=== PATIENT | male | born 1955 | race Caucasian/White ===

== ENCOUNTER 2021-01-03 08:40 | Day surgery (SDC) | payer BC, OTHER ==
[2021-01-03] MEDS ORDERED: propofoL 200 MG/20 ML VIAL IV ONE (09:13)
[2021-01-03] MEDS ORDERED: MIDAZOLAM HCL 2 MG/2 ML INJ ONE (09:13)
[2021-01-03] MEDS ORDERED: GLYCOPYRROLATE 0.2 MG/ML SYR ONE (09:13)
[2021-01-03] MEDS ORDERED: ONDANSETRON 4 MG/2 ML VIAL ONE ×2 (09:14→11:36)
[2021-01-03] MEDS ORDERED: FENTANYL CITR 250 MCG/5 ML ONE (09:14)
[2021-01-03] MEDS ORDERED: Ringers Lactate 1,000 ML IV ONE ×2 (09:26→11:59)
[2021-01-03] MEDS ORDERED: CEFOXITIN/SWI 1gm 1 GM/10 ML SYR ONE (09:26)
[2021-01-03] MEDS: BUPIVACA 0.5%/EPI 0.0005%/PF 30 ML VIAL ONE ×2 (09:34→11:00)
[2021-01-03] MEDS ORDERED: BUPIVACAINE 0.25% PF 30 ML VIAL ONE (09:45)
[2021-01-03] MEDS ORDERED: EPHEDRINE SULF 50 MG/ML VIAL ONE ×3 (11:40→11:42)
[2021-01-03] MEDS ORDERED: FENTANYL CITR 100 MCG/2 ML ONE (12:25)
--- NOTE | 2021-01-03 12:39 | P.OP ---
Preoperative diagnosis: Chronic Cholecystitis Postoperative diagnosis: Chronic Cholecystitis Primary procedure: Laparoscopic Cholecystectomy Anesthesia: GETA + Local Estimated blood loss: <10cc Specimen: Gallbladder Findings: Significant Scarring, encased GB, Cirrhosis Complications: None Transferred to: Recovery Room Condition: Good
[2021-01-03] MEDS ORDERED: HYDROCODONE/APAP 5/325 MG TAB PO ONE (13:01)
[2021-01-03] MEDS: HYDROMORPHONE HCL 1 MG/ML INJ ONE ×2 (13:13→13:18)
[2021-01-03 13:25] VITALS: TEMP 96.9
[2021-01-03 13:43] VITALS: BP 136/82; O2SAT 97
[2021-01-03] MEDS ORDERED: HYDROCODONE/APAP 5/325 MG TAB ONE (14:07)
--- NOTE | 2021-01-03 14:24 | OP ---
Date of Procedure: 01/03/2021 Surgeon: Сергей Taylor MD, Preoperative Diagnosis: Chronic cholecystitis. Postoperative Diagnosis: Chronic cholecystitis. Procedure Performed: Laparoscopic cholecystectomy. Anesthesia: General endotracheal plus local with 0.25% Marcaine. Estimated Blood Loss: Less than 10 mL. Specimen: Gallbladder. Findings: Significant scarring in gallbladder and cirrhosis. Complications: None. Disposition: The patient was transferred to recovery room in good condition. Procedure In Detail: After informed consent was obtained, the patient was brought to the operating r oom, prepped and draped in the usual sterile fashion. After adequate anesthesia achieved, supraumbil ical area was anesthetized with 0.25% Marcaine and sharply incised. A 5 mm 0-degree optical trocar w as introduced in the abdomen without evidence of complication. Insufflation was obtained to 15 mmHg at this time. There was no injury to vital structures upon entry to the abdomen. Two additional tro cars were placed, 1 in the epigastrium and 1 in the right upper quadrant. Both of these were similar ly anesthetized and sharply incised. A 5 mm trocar was introduced in the abdomen without evidence of complication. Insufflation was maintained at 15 throughout the majority of the. I began by inspect ing the abdomen and the liver was found to have evidence of gross cirrhosis. I localized the gallbla dder, grasped the fundus of the gallbladder, and placed towards the patient's right shoulder after po sitioning the patient in the head up right-side up position/gallbladder position. The gallbladder wa s found to be floppy, but with evidence of stones and significant encasement was evident. I started taking the encased omentum off the anterior surface of the gallbladder using electrocautery and katarzyna nued to dissect the gallbladder down to the Farnaz pouch. The scarring was found to be quite signi ficant as I moved down towards the Farnaz pouch of the gallbladder. There was significant scarring in that area making dissection quite difficult and meticulous at this point, I therefore dissected c ircumferentially down until I obtained a view of the gallbladder cystic duct junction. I could not d issect this without electrocautery and the area was quite firmly encased and scar tissue making the i dentification of anatomy quite difficult and as such I opted to take the gallbladder and I opted to e ncircle it at this point to remove the gallbladder at the cystic duct gallbladder junction rather maritza n on the cystic duct site. I therefore dissected and continued through the thick inflammatory rind a nd noted 2 small structures which appeared to be arterial. They were quite diminutive consistent wit h branches of the cystic artery, which went only in the medial surface of the gallbladder. Both of t hese were encircled and clips were placed on the proximal distal side and at this point, I encircled the gallbladder cystic duct junction and placed double titanium clips on the proximal side and singly on the distal side. I then ligated the gallbladder at this point leaving a small rim of gallbladder at the cystic duct junction at this point. I then ligated the 2 structures identified as branches o f the cystic artery and removed the gallbladder off the hepatic fossa without evidence of complicatio n. There was no bleeding throughout the case, minimal spillage of bile. The gallbladder was placed in EndoCatch bag, removed through the umbilical trocar site and sent off for pathologic examination. I then copiously irrigated the area multiple times until completely clear. I grasped the gallbladde r cystic duct junction and secured a Vicryl Endoloop on the end of this to prevent leakage of bile at this point. Therefore, double titanium clips and an Endoloop replaced on this rim of gallbladder at the cystic duct junction. I copiously irrigated the area multiple times until completely clear. No additional hemostatic was required and I then placed the patient back in neutral position. There wa s no bile spillage or bleeding at the end of the procedure. I removed the umbilical trocar, closed t he umbilical trocar site using a Joe-Kojo suture passer with a 0 Vicryl in an interrupted fash ion with good apposition of the tissues. I then removed the remaining trocars under direct visualiza tion after the abdomen was completely desufflated. All skin incisions were copiously irrigated and c losed with 4-0 Monocryl in a running fashion. Dermabond placed over top. The patient tolerated the procedure well without evidence of complication and transferred to PACU in good condition. All counts were correct at the end of the ca se. TK/MODL Voice ID: [id number] Report ID: [id number]
== END 2021-01-03 14:45 | disposition home or self-care (01) ==
LOC: OR 08:40
PROVIDERS: ATTEND Surgery
PROC: 0FT44ZZ Resection of Gallbladder, Percutaneous Endoscopic Approach (ICD-10-PCS; principal; 2021-01-03 10:30)
DX: K80.10 Calculus of gallbladder with chronic cholecystitis without obstruction (principal); Z20.822 Contact with and (suspected) exposure to COVID-19
CPT/HCPCS: 88304; 47562; U0003; J2704; J2250; J3010 ×2; J1170; J7120 ×2; J2405 ×2